=== PATIENT | male | born 1955 | race African-American/Black ===

== ENCOUNTER 2016-12-03 08:42 | Emergency (ER) | payer MEDICAID ==
[~2016-12-03] VITALS: Ht 180.3 cm; Wt 82.0 kg
[~2016-12-03 08:42] MED LIST: ALBU18HF2 IH; ASPI-1159 PO; ATOR10TA PO; FAMO40TA35 PO; FLUT1AER IH; FLUT1DIS3 INH; FURO-152 PO; INSU3INS6 SUBCUT; ISOS30TA6 PO; LISI40TA4 PO; LURA40TA PO; METO25TA6 PO; P50 PO; PARO30TA62 PO; QUET200T PO; SIMV20TA6 PO; TRAZ-132 PO
[2016-12-03 08:43] VITALS: BP 125/95
== END 2016-12-03 12:48 | disposition left against medical advice (07) ==
LOC: ER 08:43
DX: R05 Cough (principal); R09.81 Nasal congestion; Z53.21 Procedure and treatment not carried out due to patient leaving prior to being seen by health care provider